=== PATIENT | male | born 1995 | race Hispanic/Latino ===

== ENCOUNTER 2017-04-08 02:09 | Emergency (ER) | payer SELFPAY ==
[~2017-04-08] VITALS: Ht 170.2 cm; Wt 54.4 kg
[~2017-04-08 02:09] MED LIST: CYCLOBENZAPRINE5 M2 PO; LEXAPRO10 M1 PO
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
[2017-04-08] MEDS ORDERED: KEFLEX250 M1 PO (04:23)
[2017-04-08 04:32] VITALS: BP 146/68
== END 2017-04-08 04:33 ==
LOC: ERH 02:09
DX: S41.142A Puncture wound with foreign body of left upper arm, initial encounter (principal); S01.442A Puncture wound with foreign body of left cheek and temporomandibular area, initial encounter; S01.342A Puncture wound with foreign body of left ear, initial encounter; X95.01XA Assault by airgun discharge, initial encounter; Y93.9 Activity, unspecified; Y92.9 Unspecified place or not applicable
CPT/HCPCS: 73060-LT; 90471; 90714; 96374; J0690

== ENCOUNTER → 2017-05-07 | Day surgery (SDC) | payer OTHER ==
[~2017-05-07] VITALS: Ht 177.8 cm; Wt 72.6 kg
[~2017-05-07] MED LIST changes: +KEFLEX250 M1 PO; +PROTEIN POWDER480 GM PO
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
== END ==
LOC: STS 03:15
DX: S01.442A Puncture wound with foreign body of left cheek and temporomandibular area, initial encounter (principal); S01.342A Puncture wound with foreign body of left ear, initial encounter; S01.84XA Puncture wound with foreign body of other part of head, initial encounter; X95.01XA Assault by airgun discharge, initial encounter
CPT/HCPCS: J0131; J0690; J1100; J2250; J2405